=== PATIENT | female | born 1995 | race African-American/Black ===

== ENCOUNTER 2016-12-12 09:27 | Outpatient (CLI) | payer OTHER ==
[~2016-12-12] VITALS: Ht 157.5 cm; Wt 59.0 kg
[2016-12-12 10:01] VITALS: BP 111/68
[2016-12-12 12:37] VITALS: BP 109/66
[2016-12-12 13:07] VITALS: BP 96/61
[2016-12-12 13:38] VITALS: BP 95/57
[2016-12-12 14:46] LABS: ADD MIUA? YES; BILIRUBIN NEGATIVE; BLOOD NEGATIVE; COLOR STRAW ((YELLOW)); GLUCOSE (STRIP) NEGATIVE; KETONES NEGATIVE; LEUKOCYTES TRACE; NITRITE NEGATIVE; PROTEIN (STRIP) NEGATIVE; SPECIFIC GRAVITY 1.003 (1.000-1.030); UROBILINOGEN 0.2 MG/DL (0.2-1.0)
[2016-12-12 15:36] LABS: BACTERIA RARE /HPF; EPITHELIAL CELLS RARE /HPF; MUCUS NONE SEEN /LPF; RED BLOOD CELLS 0-5 /HPF (0-5); UCUL ADDED? NO; WHITE BLOOD CELLS 0-5 /HPF (0-5)
== END 2016-12-12 14:29 | disposition home or self-care (01) ==
LOC: LDRP-OP → 2WEST 09:28 → LDRP-OP 01-11 15:18
PROVIDERS: Advanced Practice Midwife
DX: O47.1 False labor at or after 37 completed weeks of gestation (principal); Z3A.40 40 weeks gestation of pregnancy
CPT/HCPCS: 59025; 81003; 87086; G0378; J0595; J7120

== ENCOUNTER 2016-12-12 20:32 | Outpatient (CLI) | payer OTHER ==
[2016-12-12 21:27] VITALS: BP 108/67
[2016-12-12 22:01] VITALS: BP 104/70
[2016-12-12 22:24] VITALS: BP 96/56
== END 2016-12-12 23:35 | disposition home or self-care (01) ==
LOC: LDRP-OP 20:32 → 2WEST 20:34 → LDRP-OP 01-11 20:11
DX: O47.1 False labor at or after 37 completed weeks of gestation (principal); Z3A.40 40 weeks gestation of pregnancy
CPT/HCPCS: 59025; G0378; J0595; J7120

== ENCOUNTER 2016-12-13 03:01 | Inpatient (IN) | payer OTHER ==
[~2016-12-13] VITALS: Ht 157.5 cm; Wt 58.5 kg
[2016-12-13] VITALS (8 sets, daily range): BP systolic 97–129; BP diastolic 55–81
[2016-12-13 04:19] LABS: EOSINOPHIL (%) 0.1 % (0-5); HEMATOCRIT 34.1 % (36.0-46.0); IMMATURE GRANULOCYTE (%) 0.6 % (0.0-0.7); IMMATURE GRANULOCYTE COUNT 0.1 K/uL; INSTRUMENT ABS NEUTROPHIL CT 8.8 K/uL; MCH 27.7 PG (29.0-34.0); MCV 86.5 FL (83-99); MEAN PLAT.VOLUME 10.3 uM^3 (9.5-12.4); MONOCYTE (%) 7.7 % (3-12); MONOCYTE COUNT 0.8 K/uL (0-0.8); NEUTROPHIL (%) 82.3 % (45-76); NEUTROPHIL COUNT 8.8 K/uL (1.8-6.4); PLATELET COUNT 216 K/uL (156-360); RBC DIS.WIDTH-CV 13.7 % (11.8-14.6); RBC DIS.WIDTH-SD 42.7 % (39-53); RED BLOOD COUNT 3.94 M/uL (3.80-5.20); WHITE BLOOD COUNT 10.7 K/uL (4.1-10.2)
[2016-12-14 07:10] VITALS: BP 91/57
[2016-12-14 09:39] LABS: EOSINOPHIL (%) 0.7 % (0-5); EOSINOPHIL COUNT 0.1 K/uL (0-0.3); HEMATOCRIT 22.9 % (36.0-46.0); IMMATURE GRANULOCYTE (%) 0.7 % (0.0-0.7); IMMATURE GRANULOCYTE COUNT 0.1 K/uL; INSTRUMENT ABS NEUTROPHIL CT 9.2 K/uL; LYMPHOCYTE COUNT 2.5 K/uL (1.0-2.8); MCH 28.5 PG (29.0-34.0); MCHC 32.8 G/DL (30.0-36.0); MCV 87.1 FL (83-99); MEAN PLAT.VOLUME 10.7 uM^3 (9.5-12.4); MONOCYTE (%) 12.5 % (3-12); MONOCYTE COUNT 1.7 K/uL (0-0.8); NEUTROPHIL (%) 67.4 % (45-76); NEUTROPHIL COUNT 9.2 K/uL (1.8-6.4); PLATELET COUNT 213 K/uL (156-360); RBC DIS.WIDTH-CV 14.2 % (11.8-14.6); RBC DIS.WIDTH-SD 43.6 % (39-53); RED BLOOD COUNT 2.63 M/uL (3.80-5.20); WHITE BLOOD COUNT 13.6 K/uL (4.1-10.2)
[2016-12-14 14:00] VITALS: BP 101/59
[2016-12-14 22:07] VITALS: BP 94/58
[2016-12-15 07:31] VITALS: BP 95/52
[2016-12-15] MEDS ORDERED: IBUPROFEN800 MG PO (08:34)
[2016-12-15] MEDS ORDERED: CAMILA0.35 MG PO (08:39)
[2016-12-15] MEDS ORDERED: HEMOCYTE324 MG PO (08:39)
[2016-12-15 14:16] VITALS: BP 106/59
== END 2016-12-15 17:20 | disposition home or self-care (01) | DRG 775 ==
LOC: LDRP-OP 03:01 → 2WEST 03:02 → LDRP-OP 01-11 23:47
PROVIDERS: Advanced Practice Midwife
PROC: 10E0XZZ Delivery of Products of Conception, External Approach (ICD-10-PCS; principal; 2016-12-13)
PROC: 10907ZC Drainage of Amniotic Fluid, Therapeutic from Products of Conception, Via Natural or Artificial Opening (ICD-10-PCS; principal; 2016-12-13)
DX: O70.1 Second degree perineal laceration during delivery (principal); Z3A.40 40 weeks gestation of pregnancy; Z37.0 Single live birth
CPT/HCPCS: 59025; 81003; 85025; 87086; C1755; G0378; J0595; J7120